=== PATIENT | female | born 1990 | race Caucasian/White ===

== ENCOUNTER 2017-07-26 01:41 | Emergency (ER) | payer OTHER, SELFPAY ==
[2017-07-26] MEDS ORDERED: NA CHLORIDE 0.9% 100 ML IV ONE (01:58)
[2017-07-26] MEDS ORDERED: THIAMINE 200 MG/2 ML INJ ONE (01:58)
[2017-07-26] MEDS ORDERED: NA CHLORIDE 0.9% 1,000 ML ONE (01:59)
[2017-07-26 02:20] LABS: Absolute Lymphocytes (CBC) 1.6 K/uL (0.7-4.9); Absolute Monocytes 0.5 K/uL (0.1-1.3); Absolute Neutrophil 4.2 K/uL (1.8-8.0); Basophils % 0.7 % (0-1.3); Eosinophils % 0.5 % (0-4.4); Hematocrit 38.2 % (36.0-45.0); Lymphocytes % 25.6 % (15.3-44.8); MCH 29.1 pg (27.0-35.0); MPV 9.1 fL (7.6-11.3); Monocytes % 7.5 % (3.3-12.3); RBC Red Blood Cell Count 4.34 M/uL (3.86-4.86)
[2017-07-26 02:22] LABS: Bicarbonate 21 mEq/L (21-31); Glucose Level 91 mg/dL (65-120); Potassium 3.2 mEq/L (3.6-5.0); Protime INR 1.07; Sodium Level 140 mEq/L (135-145)
[2017-07-26 02:28] LABS: ALT/SGPT 17 IU/L (10-60); AST/SGOT 19 IU/L (10-42); Albumin 4.5 g/dL (3.2-5.5); Alkaline Phosphatase 47 IU/L (42-121); BUN Blood Urea Nitrogen 20 mg/dL (6-20); Bilirubin Direct 0.1 mg/dL (0-0.2); Bilirubin Total 0.6 mg/dL (0.3-1.2)
[2017-07-26 03:11] LABS: Alcohol Serum/Plasma 101 mg/dl; Salicylates Level < 4.0 mg/dl (<30)
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
--- NOTE | 2017-07-26 03:19 | EDPHYS ---
Physician Documentation [facility] Name: Humera Payne Age: 27 yrs Sex: Female : 1990 Arrival Date: 07/26/2017 Time: 01:42 Bed 6 Private MD: ED Chi Mohamud HPI: 07/26 01:49 This 27 yrs old Female presents to ER via Ambulatory with complaints of forrest General Weakness, Probable Seizure, Chest Pain. 01:49 The patient presents with a history of multiple seizures, a total of 4. Character of forrest seizure(s): Loss of consciousness: the patient did not lose consciousness, Motor activity: generalized, Incontinence: none, Apnea: the patient did not experience apnea, Circulation: the patient did not experience evidence of pulse disturbance. Seizure onset: just prior to arrival. Context: the seizure(s) was witnessed, by a significant other. Seizure Hx: it is unknown whether or not the patient has a previous seizure history. Associated injury: The patient did not suffer any apparent associated injury. The patient has not experienced similar symptoms in the past. 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 - Social history:: Smoking status: Patient uses tobacco products, unknown amount Patient uses alcohol. - Family history:: not pertinent. ROS: 01:49 Constitutional: Negative for fever, chills, and weight loss, Eyes: Negative for injury, forrest pain, redness, and discharge, ENT: Negative for injury, pain, and discharge, Neck: Negative for injury, pain, and swelling, Cardiovascular: Negative for chest pain, palpitations, and edema, Respiratory: Negative for shortness of breath, cough, wheezing, and pleuritic chest pain, Abdomen/GI: Negative for abdominal pain, nausea, vomiting, diarrhea, and constipation, Back: Negative for injury and pain, : Negative for injury, bleeding, discharge, and swelling, MS/Extremity: Negative for injury and deformity, Skin: Negative for injury, rash, and discoloration, Psych: Negative for depression, anxiety, suicide ideation, homicidal ideation, and hallucinations, Allergy/Immunology: Negative for hives, rash, and allergies, Endocrine: Negative for neck swelling, polydipsia, polyuria, polyphagia, and marked weight changes, Hematologic/Lymphatic: Negative for swollen nodes, abnormal bleeding, and unusual bruising. :49 Neuro: Positive for weakness, pseudoseizure. Exam: :49 Constitutional: This is a well developed, well nourished patient who is awake, alert, forrest and in no acute distress. Head/Face: Normocephalic, atraumatic. Eyes: Pupils equal round and reactive to light, extra-ocular motions intact. Lids and lashes normal. Conjunctiva and sclera are non-icteric and not injected. Cornea within normal limits. Periorbital areas with no swelling, redness, or edema. ENT: Nares patent. No nasal discharge, no septal abnormalities noted. Tympanic membranes are normal and external auditory canals are clear. Oropharynx with no redness, swelling, or masses, exudates, or evidence of obstruction, uvula midline. Mucous membranes moist. Neck: Trachea midline, no thyromegaly or masses palpated, and no cervical lymphadenopathy. Supple, full range of motion without nuchal rigidity, or vertebral point tenderness. No Meningismus. Chest/axilla: Normal chest wall appearance and motion. Nontender with no deformity. No lesions are appreciated. Cardiovascular: Regular rate and rhythm with a normal S1 and S2. No gallops, murmurs, or rubs. Normal PMI, no JVD. No pulse deficits. Respiratory: Lungs have equal breath sounds bilaterally, clear to auscultation and percussion. No rales, rhonchi or wheezes noted. No increased work of breathing, no retractions or nasal flaring. Abdomen/GI: Soft, non-tender, with normal bowel sounds. No distension or tympany. No guarding or rebound. No evidence of tenderness throughout. Back: No spinal tenderness. No costovertebral tenderness. Full range of motion. Female : Normal external genitalia. Skin: Warm, dry with normal turgor. Normal color with no rashes, no lesions, and no evidence of cellulitis. MS/ Extremity: Pulses equal, no cyanosis. Neurovascular intact. Full, normal range of motion. Neuro: Awake and alert, GCS 15, oriented to person, place, time, and situation. Cranial nerves II-XII grossly intact. Motor strength 5/5 in all extremities. Sensory grossly intact. Cerebellar exam normal. Normal gait. Psych: Awake, alert, with orientation to person, place and time. Behavior, mood, and affect are within normal limits. 01:52 Neck: ROM/movement: is normal, no acute changes, Meningeal signs: are not present, forrest Kernig's sign is negative, Brudzinski's sign is negative. Vital Signs: 01:51 BP 115 / 74; Pulse 89; Resp 18; Temp 98.3; Pulse Ox 100% ; Weight 54.43 kg; bp 03:30 BP 121 / 69; Pulse 79; Resp 16; Pulse Ox 100% ; bp [place] Coma Score: 01:51 Eye Response: spontaneous(4). Verbal Response: oriented(5). Motor Response: obeys bp commands(6). Total: 15. MDM: 01:44 Patient medically screened. [facility] 07/26 01:48 Order name: Acetaminophen; Complete Time: 03:15 [facility] 07/26 01:48 Order name: Basic Metabolic Panel; Complete Time: 03:15 [facility] 07/26 01:48 Order name: CBC with Diff; Complete Time: 03:15 [facility] 07/26 01:48 Order name: ETOH Level; Complete Time: 03:15 [facility] 07/26 01:48 Order name: Hepatic Function; Complete Time: 03:15 [facility] 07/26 01:48 Order name: PT-INR; Complete Time: 03:15 [facility] 07/26 01:48 Order name: Ptt, Activated; Complete Time: 03:15 [facility] 07/26 01:48 Order name: Salicylate; Complete Time: 03:15 [facility] 07/26 01:48 Order name: Urine Drug Screen [facility] 07/26 01:48 Order name: CT Head Brain wo Cont [facility] 07/26 02:10 Order name: Urine Dipstick--Ancillary (enter results) [facility] 07/26 01:48 Order name: Urine Test (obtain specimen); Complete Time: 02:12 [facility] 07/26 01:48 Order name: EKG; Complete Time: 01:49 [facility] 07/26 01:48 Order name: EKG - Nurse/Tech; Complete Time: 02:12 [facility] 07/26 01:48 Order name: IV Saline Lock; Complete Time: 02:12 [facility] 07/26 01:48 Order name: Labs collected and sent; Complete Time: 02:12 [facility] 07/26 01:48 Order name: Urine Dipstick-Ancillary (obtain specimen); Complete Time: 02:12 [facility] 07/26 01:48 Order name: Seizure Precautions; Complete Time: 01:57 [facility] Administered Medications: 02:00 Drug: NS 0.9% 1000 ml Route: IV; Rate: 1 bolus; Site: right antecubital; bp 03:41 Follow up: IV Status: Completed infusion bp 02:12 Drug: Thiamine 100 mg Route: IV; Rate: bolus; Site: right antecubital; bp 03:40 Follow up: IV Status: Completed infusion bp 03:30 Drug: Potassium Chloride 20 mEq Route: PO; bp 03:41 Follow up: Response: No adverse reaction bp Disposition: 07/26/17 03:18 Discharged to Home. Impression: Alcohol abuse with intoxication, Anxiety disorder, unspecified, Hypokalemia. - Condition is Stable. - Discharge Instructions: Alcohol and Drug Addiction, Finding Treatment, Alcohol Intoxication, Panic Attacks, Alcohol Abuse and Nutrition, Panic Attacks, [id number], Hypokalemia. - Prescriptions for Benadryl 25 mg Oral Capsule - take 1 capsule by ORAL route every 6 hours As needed; 30 tablet. - Medication Reconciliation Form, Thank You Letter, Antibiotic Education, Prescription Opioid Use, Work release form form. - Follow up: Private Physician; When: 2 - 3 days; Reason: Recheck today's complaints, Continuance of care, Re-evaluation by your physician. - Problem is new. - Symptoms have improved. Signatures: Dispatcher [employer] [facility] Chi Helm MD MD cha Peltier, Brian, RN RN bp Corrections: (The following items were deleted from the chart) 03:42 03:18 07/26/2017 03:18 Discharged to Home. Impression: Alcohol abuse with intoxication; bp Anxiety disorder, unspecified; Hypokalemia. Condition is Stable. Discharge Instructions: Alcohol and Drug Addiction, Finding Treatment, Alcohol Intoxication, Panic Attacks, Alcohol Abuse and Nutrition, Panic Attacks, [id number]. Prescriptions for Benadryl 25 mg Oral Capsule - take 1 capsule by ORAL route every 6 hours As needed; 30 tablet. and Forms are Medication Reconciliation Form, Thank You Letter, Antibiotic Education, Prescription Opioid Use. Follow up: Private Physician; When: 2 - 3 days; Reason: Recheck today's complaints, Continuance of care, Re-evaluation by your physician. Problem is new. Symptoms have improved. forrest
[2017-07-26 03:22] LABS: Barbiturates NEGATIVE; Benzodiazepines NEGATIVE; Cocaine NEGATIVE; METHAMPHETAM NEGATIVE; Opiates NEGATIVE; Phencyclidine NEGATIVE; THC Cannibis NEGATIVE
[2017-07-26 03:23] LABS: Urine Blood TRACE (NEG); Urine Glucose NEGATIVE (NEG); Urine Protein NEGATIVE (NEG); Urine Specific Gravity <1.005 (1.005-1.030)
--- NOTE | 2017-07-26 06:39 | EKG ---
Test Date: 2017-07-26 Test Time: 02:06:55 Hemp Fiber Taker Off: SRIDHAR MEASUREMENT RESULTS: Intervals: Rate: 85 TN: 132 QRSD: 86 QT: 388 QTc: 461 [place]: P: 80 TN: 132 QRS: 86 T: 50 INTERPRETIVE STATEMENTS: Normal sinus rhythm Normal ECG No previous ECG available for comparison Electronically Signed On 07-26-17 06:38:53 CDT by Jelani Young
--- NOTE | 2017-07-26 08:49 | RAD REPORT ---
EXAM DESCRIPTION: CT - Head Brain Wo Cont - 07/26/2017 7:30 am CLINICAL HISTORY: Seizure COMPARISON: None. TECHNIQUE: All CT scans are performed using dose optimization technique as appropriate and may inclu de automated exposure control or mA/KV adjustment according to patient size. FINDINGS: No intracranial hemorrhage, hydrocephalus or extra-axial fluid collection.No areas of brai n edema or evidence of midline shift. The paranasal sinuses and mastoids are clear. The calvarium is intact. IMPRESSION: No acute intracranial abnormality.
== END 2017-07-26 03:42 | disposition home or self-care (01) ==
LOC: ER 01:41
DX: F10.129 Alcohol abuse with intoxication, unspecified (principal); F41.9 Anxiety disorder, unspecified; E87.6 Hypokalemia; Z72.0 Tobacco use
CPT/HCPCS: 36415; 70450; 80048; 80076; 80307; 80320; 80329; 81003; 85025; 85610; 85730; 93005; 96365; 99284; J3411; J7030

== ENCOUNTER 2017-08-15 00:41 | Emergency (ER) | payer SELFPAY ==
[2017-08-15 01:48] LABS: Urine Bacteria <20 /HPF (<20); Urine Culture Reflex Order NOT NEEDED; Urine Mucus HEAVY /HPF (NONE SEEN); Urine RBC <5 /HPF (NONE SEEN)
[2017-08-15] MEDS ORDERED: NA CHLORIDE 0.9% 1,000 ML ONE (01:48)
[2017-08-15 01:55] LABS: Absolute Lymphocytes (CBC) 1.2 K/uL (0.7-4.9); Absolute Monocytes 0.6 K/uL (0.1-1.3); Absolute Neutrophil 6.8 K/uL (1.8-8.0); Basophils % 0.4 % (0-1.3); Eosinophils % 0.2 % (0-4.4); Hematocrit 44.4 % (36.0-45.0); Lymphocytes % 14.4 % (15.3-44.8); MCH 28.9 pg (27.0-35.0); MCV 86.6 fL (80-100); MPV 8.5 fL (7.6-11.3); Monocytes % 6.8 % (3.3-12.3); RBC Red Blood Cell Count 5.13 M/uL (3.86-4.86)
[2017-08-15 01:57] LABS: Urine Blood 2+ (NEG); Urine Glucose NEGATIVE (NEG); Urine Protein 2+ (NEG); Urine Specific Gravity 1.025 (1.005-1.030); Urine pH 6.5 (5.0-7.0)
[2017-08-15 02:11] LABS: Bicarbonate 22 mEq/L (21-31); Glucose Level 99 mg/dL (65-120); Potassium 3.2 mEq/L (3.6-5.0); Sodium Level 137 mEq/L (135-145)
[2017-08-15 02:12] LABS: BUN Blood Urea Nitrogen 15 mg/dL (6-20)
[2017-08-15 02:32] LABS: Alcohol Serum/Plasma < 10 mg/dl
[2017-08-15] MEDS ORDERED: POTASSIUM 25 MEQ EFFERV TAB ONE (03:13)
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
--- NOTE | 2017-08-15 15:41 | EKG ---
Test Date: 2017-08-15 Test Time: 01:47:16 Bridge Ironworker: MEGHNA MEASUREMENT RESULTS: Intervals: Rate: 77 DE: 122 QRSD: 76 QT: 404 QTc: 457 [place]: P: 73 DE: 122 QRS: 84 T: 73 INTERPRETIVE STATEMENTS: Normal sinus rhythm Septal infarct, age undetermined Abnormal ECG Compared to ECG 07/26/2017 02:06:55 Myocardial infarct finding now present Electronically Signed On 08-15-17 15:40:09 CDT by Jelani Young
== END 2017-08-15 05:50 | disposition home or self-care (01) ==
LOC: ER 00:41
DX: S00.03XA Contusion of scalp, initial encounter (principal); F19.10 Other psychoactive substance abuse, uncomplicated; Y04.2XXA Assault by strike against or bumped into by another person, initial encounter; Y93.9 Activity, unspecified; Y92.9 Unspecified place or not applicable; F17.210 Nicotine dependence, cigarettes, uncomplicated
CPT/HCPCS: 36415; 70450; 72125; 80048; 80320; 81003; 81015; 81025; 85025; 93005; 96360; 96361; 99284; J7030

== ENCOUNTER 2021-02-13 20:44 | Emergency (ER) | payer BC, SELFPAY ==
--- OUTSIDE RECORDS SUMMARY | 2021-02-13 20:48 | XMS REPORT | Continuity of Care Document ---
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 GRANULOCYTE # (test 0.01 x10 3/uL 0.00-0.07 N code = IG#) LYMPHOCYTE # (test code = LY#) 1.0 K/mm3 1.2-4.0 L MONOCYTE # (test code = MO#) 0.4 K/mm3 0.0-0.6 N EOSINOPHIL # (test code = EO#) 0.0 K/MM3 0.0-0.7 N BASOPHIL # (test code = BA#) 0.0 K/mm3 0.0-0.2 N URINALYSIS [id number] 13:27:00 Test Item Value Reference Range Interpretation Comments UA COLOR (test code = YELLOW COLU) UA APPEARANCE (test code CLEAR = APPU) UA GLUCOSE DIPSTICK (test NORMAL mg/dl NORMAL code = DGLUU) UA BILIRUBIN DIPSTICK NEGATIVE mg/dL NEGATIVE (test code = BILU) UA KETONE DIPSTICK (test NEGATIVE mg/dl NEGATIVE code = KETU) UA SPECIFIC GRAVITY (test 1.015 1.000-1.030 code = SGU) UA BLOOD DIPSTICK (test 10 Kanu/micL Kanu/micL NEGATIVE A code = LANDON) UA PH DIPSTICK (test code 5.0 5.0-9.0 = GANGA) UA PROTEIN DIPSTICK (test NEGATIVE mg/dl NEGATIVE code = PROU) UA UROBILINIOGEN DIPSTICK NORMAL mg/dl NORMAL (test code = URO) UA NITRITE DIPSTICK (test NEGATIVE NEGATIVE code = ROCIO) UA LEUKOCYTE ESTERASE NEGATIVE Deepa/micL NEGATIVE DIPSTICK (test code = LEUU) UA WBC (test code = WBCU) WBC/HPF NONE UA RBC (test code = RBCU) RBC/HPF 0-3 UA EPITHELIAL CELLS (test EPI/HPF 0-3 code = EPIU) UA BACTERIA (test code = NONE BACU) Specimen comments: Clean Catch- DUP AB/PEL/SC [id number] 13:00:00 FAX: Jamilah Payne MD [phone] [place]: St: REG Name: GILBERT DÍAZ [facility] : 1990 Age/S: 29/F [address] [facility] Unit#: [id number] Loc: [address] Phys: [place] [id number] Acct: [id number] Dis Date: Status: REG ER PHONE #: [phone] Exam Date: 07/01/2019 1250 FAX #: [phone] Reason: RIGHT LQ PAIN. PERV CYST EXAMS: CPT CODE: [id number] DUP AB/PEL/SC COMP 95330 Site ID: [id number] EXAMINATION: - US TRANSVAGINAL NONOB, - US PELVIS COMPLETE, - DUP AB/PEL/SC COMP. HISTORY: Right lower quadrant pain COMPARISON: None. FINDINGS: The uterus is 7.9 x 4 x 5.4 cm. The endometrial stripe is 1.3 cm in thickness. There is no myometrial lesion seen.The right ovary is 3.9 x 2.2 x 3.6 cm. The left ovary is 2.9 x 1.9 x 2.5 cm. Follicles are noted in the ovaries with no suspicious mass. Dominant hemorrhagic follicle in the right ovary is 2 .6 cm in size. No significant free fluid in the pelvis is seen. IMPRESSION: Dominant hemorrhagic follicle is seen in the right ovary. No significant abnormality seen otherwise.. at 1300 Reported and signed by: Corbin Torrez M.D. CC: Jamilah Payne MD Technologist: [id number]; JYOTI DILLON [facility] Date/Time/By: 07/01/2019 (1300) : By: RayTZS PAGE 1 Signed Report FAX: Jamilah Payne MD [phone] [place]: St: REG Name: GILBERT DÍAZ [facility] : 1990 Age/S: 29/F [address] [facility] Unit #: [id number] Loc: [address] Phys: [place] [id number] Acct: [id number] Dis Date: Status: REG ER PHONE #: [phone] Exam Date: 07/01/2019 1250 FAX #: [phone] Reason: RIGHT LQ PAIN. PERV CYST EXAMS: CPT CODE: [id number] DUP AB/PEL/SC COMP 72169 <Continued> Orig Print D/T: S: 07/01/2019 (7483) PAGE 2 Signed Report- US PELVIS [id number] 13:00:00 FAX: Jamilah Payne MD [phone] [place]: St: REG Name: GILBERT DÍAZ [facility] : 1990 Age/S: 29/F [address] [facility] Unit#: [id number] Loc: [address] Phys: [place] [id number] Acct: [id number] Dis Date: Status: REG ER PHONE #: [phone] Exam Date: 07/01/2019 1249 FAX #: [phone] Reason: RIGHT LQ P[AIN EXAMS: CPT CODE: [id number] US PELVIS COMPLETE 68786 Site ID: [id number] EXAMINATION: - US TRANSVAGINAL NONOB, - US PELVIS COMPLETE, - DUP AB/PEL/SC COMP. HISTORY: Right lower quadrant pain COMPARISON: None. FINDINGS: The uterus is 7.9 x 4 x 5.4 cm. The endometrial stripe is 1.3 cm in thickness. There is no myometrial lesion seen.The right ovary is 3.9 x 2.2 x 3.6 cm. The left ovary is 2.9 x 1.9 x 2.5 cm. Follicles are noted in the ovaries with no suspicious mass. Dominant hemorrhagic follicle in the right ovary is 2.6 cm in size. No significant free fluid in the pelvis is seen. IMPRESSION: Dominant hemorrhagic follicle is seen in the right ovary. No significant abnormality seen otherwise.. at 1300 Reported and signed by: Corbin Torrez M.D. CC: Jamilah Payne MD Technologist: JYOTI DILLON [facility] Date/Time/By: 07/01/2019 (4719) : By: Leland PAGE 1 Signed Report FAX: Jamilah Payne MD [phone] [place]: St: REG Name: GILBERT DÍAZ [facility] : 1990 Age/S: 29/F [address] Unit #: [id number] Loc: [address] Phys: [place] [id number] Acct: [id number] Dis Date: Status: REG ER PHONE #: [phone] Exam Date: 07/01/2019 124 FAX #: [phone] Reason: RIGHT LQ P[AIN EXAMS: CPT CODE: [id number] US PELVIS COMPLETE 18846 <Continued> Orig Print D/T: S: 07/01/2019 (4116) PAGE 2 Signed Report- US TRANSVAGINAL NON [id number] 13:00:00 FAX: Jamilah Payne MD [phone] [place]: St: REG [facility] 1990 Age/S: 29/F [address] [employer] Unit#: [id number] Loc: [address] Phys: [place] [address] Acct: [id number] Dis Date: Status: REG ER PHONE #: [phone] Exam Date: 07/01/2019 1249 FAX #: [phone] Reason: RIGHT L EXAMS: CPT CODE: [id number] [place] [address] Site ID: [id number] EXAMINATION: - US TRANSVAGINAL NONOB, - US PELVIS COMPLETE, - DUP AB/PEL/SC COMP. HISTORY: Right lower quadrant pain COMPARISON: None. FINDINGS: The uterus is 7.9 x 4 x 5.4 cm. The endometrial stripe is 1.3 cm in thickness. There is no myometrial lesion seen.The right ovary is 3.9 x 2.2 x 3.6 cm. The left ovary is 2.9 x 1.9 x 2.5 cm. Follicles are noted in the ovaries with no suspicious mass. Dominant hemorrhagic follicle in the right ovary is 2.6 cm in size. No significant free fluid in the pelvis is seen. IMPRESSION: Dominant hemorrhagic follicle is seen in the right ovary. No significant abnormality seen otherwise.. at 1300 Reported and signed by: Corbin Torrez M.D. CC: Jamilah Payne MD Technologist: [id number] Rm 2; JYOTI DILLON Trnsc[facility] Date/Time/By: 07/01/2019 (1300) : By: Leland PAGE 1 Signed Report FAX: Jamilah Payne MD [phone] [place]: St: REG Name: GILBERT DÍAZ [facility] : 1990 Age/S: 29/F [address] [facility] Unit #: [id number] Loc: [address] [place] [address] Phys: [place] [id number] Acct: [id number] Dis Date: Status: REG ER PHONE #: [phone] Exam Date: 07/01/20199 FAX #: [phone] Reason: RIGHT L EXAMS: CPT CODE: [id number] [place] [address] <Continued> Orig Print D/T: S: 07/01/2019 (3065) PAGE 2 Signed ReportDRUGS OF ABUSE SCREEN [id number] 12:34:00 Test Item Value Reference Range Interpretation Comments URN COCAINE (test code NEGATIVE NEGATIVE Cocai ne cut-off = COCAURN) concentration: 300 ng/mL URN CANNABINOIDS (test NEGATIVE NEGATIVE Canna binoids cut-off code = CANNABURN) concentrat ion: 50 ng/mL URN AMPHETAMINE (test NEGATIVE NEGATIVE Amphet amine cut-off code = AMPHETURN) concentrat ion: 1000 ng/mL URN BARBITURATE (test NEGATIVE NEGATIVE Barbit urate cut-off code = BARBITURN) concentrat ion: 200 ng/mL URN BENZODIAZEPINE NEGATIVE NEGATIVE Benzodiaz epine cut-off (test code = BENZOURN) caity ntration: 200 ng/mL URN OPIATES (test code NEGATIVE NEGATIVE Opiat es cut-off = OPIATURN) concentration: 200 ng/mL URN PHENCYCLIDINE (PCP) NEGATIVE NEGATIVE Phen cyclidine(PCP) (test code = PHENCURN) cut-o ff concentration: 25 ng/ml URN METHADONE (test NEGATIVE NEGATIVE Methadon e cut-off code = METHAURN) concentrati on: 300 ng/mL HCG SERUM [id number] 11:50:00 Test Item Value Reference Range Interpretation Comments HCG SERUM QUAL (test code = HCGQL) NEGATIVE NEGATIVE"
[2021-02-13 22:18] LABS: Urine Blood Negative (Negative); Urine Glucose Negative (Negative); Urine Protein Negative (Negative)
--- NOTE | 2021-02-14 00:43 | ER ---
Nurse's Notes [facility] Name: Humera Payne Age: 30 yrs Sex: Female : 1990 Arrival Date: 02/13/2021 Time: 20:49 Bed Waiting Private MD: Diagnosis: Dysuria Presentation: 02/13 23:12 Chief complaint: Patient states: concerned about having a STD because I have had mw itching in vaginal area x 2 days. Denies pain, discharge, or redness. 23:12 Method Of Arrival: Ambulatory 23:12 Acuity: DINAH 4 23:30 Coronavirus screen: At this time, the client does not indicate any symptoms associated lp1 with coronavirus-19. Ebola Screen: No symptoms or risks identified at this time. Initial Sepsis Screen: Does the patient meet any 2 criteria? No. Patient's initial sepsis screen is negative. Does the patient have a suspected source of infection? No. Patient's initial sepsis screen is negative. Risk Assessment: Do you want to hurt yourself or someone else? Patient reports no desire to harm self or others. 23:30 Onset of symptoms was February 14, 2021. lp1 Screenin/22 01:00 Abuse screen: Denies threats or abuse. Denies injuries from another. Nutritional lp1 screening: No deficits noted. Tuberculosis screening: No symptoms or risk factors identified. Fall Risk None identified. Assessment: 01:00 General: Appears in no apparent distress. Behavior is calm. Neuro: No deficits noted. lp1 Cardiovascular: Patient's skin is warm and dry. Respiratory: No deficits noted. GI: No signs and/or symptoms were reported involving the gastrointestinal system. : Reports vaginal itching. EENT: No signs and/or symptoms were reported regarding the EENT system. Derm: Skin is pink, warm \T\ dry. Musculoskeletal: No deficits noted. Vital Signs: 02/13 23:12 BP 127 / 88; Pulse 85; Resp 16; Temp 97.6; Pulse Ox 100% ; Weight 58.06 kg; Height 5 mw ft. 9 in. (175.26 cm); Pain 0/10; 23:12 Body Mass Index 18.90 (58.06 kg, 175.26 cm) ED Course: 20:49 Patient arrived in ED. 21:06 Bud Fernandes PA is PHCP. [facility] 21:06 Anthony Marsh MD is Attending Physician. [facility] 22:19 Urine collected: clean catch specimen, clear, urine micro and culture sent to lab. [facility] 23:13 Triage completed. 02/14 01:00 No provider procedures requiring assistance completed. Patient did not have IV access lp1 during this emergency room visit. 01:00 Arm band placed on. lp1 01:00 Patient has correct armband on for positive identification. lp1 Administered Medications: No medications were administered Outcome: 00:42 Discharge ordered by MD. [facility] 01:05 Discharged to home ambulatory. [facility] 01:05 Condition: good 01:05 Discharge instructions given to patient, Instructed on discharge instructions, follow up and referral plans. medication usage, Demonstrated understanding of instructions, follow-up care, medications, Prescriptions given X 2. 01:06 Patient left the ED. 1 Signatures: Maribell Hi RN RN Bud Fernandes PA PA [facility] Ronel Gray RN RN 1 Marielle Eaton [facility] Holli Jerome Corrections: (The following items were deleted from the chart) 02/13 23:14 23:14 PMHx: Substance Abuse; [facility] 02/14 04:01 03:59 General: Appears in no apparent distress. Behavior is calm, lp1 lp1 04:01 03:59 Neuro: No deficits noted. 1 lp1 04:01 03:59 Cardiovascular: Patient's skin is warm and dry. 1 1 04:01 03:59 Respiratory: No deficits noted. 1 1 04:01 03:59 GI: No signs and/or symptoms were reported involving the gastrointestinal system. 1 lp1 04:01 03:59 : No signs and/or symptoms were reported regarding the genitourinary system. lp1lp1 04:01 03:59 EENT: No signs and/or symptoms were reported regarding the EENT system. 1 lp1 04:01 03:59 Derm: Skin is pink, warm \T\ dry. 1 lp1 04:01 03:59 Musculoskeletal: No deficits noted. 1 lp1 04:02 01:00 : No signs and/or symptoms were reported regarding the genitourinary system. lp1lp1
--- NOTE | 2021-02-14 00:43 | EDPHYS ---
Physician Documentation [facility] Name: Humera Payne Age: 30 yrs Sex: Female : 1990 Arrival Date: 02/13/2021 Time: 20:49 Bed Waiting Private MD: ED Physician Anthony Marsh HPI: 02/14 00:40 This 30 yrs old Female presents to ER via Ambulatory with complaints of Possible STD. jmm 00:40 The patient presents with urinary symptoms, dysuria. Onset: The symptoms/episode jmm began/occurred gradually. Modifying factors: The symptoms are alleviated by nothing, the symptoms are aggravated by nothing. Associated signs and symptoms: Pertinent positives: dysuria, Pertinent negatives: fever. Patient is concerned she may have an STI. ROS: 00:40 Constitutional: Negative for fever, chills, and weight loss, Cardiovascular: Negative jmm for chest pain, palpitations, and edema, Respiratory: Negative for shortness of breath, cough, wheezing, and pleuritic chest pain. 00:40 : Positive for urinary symptoms. 00:40 All other systems are negative. Exam: 00:40 Constitutional: This is a well developed, well nourished patient who is awake, alert, jmm and in no acute distress. Head/Face: atraumatic. Eyes: EOMI, no conjunctival erythema appreciated ENT: Moist Mucus Membranes Neck: Trachea midline, Supple Chest/axilla: Normal chest wall appearance and motion. Cardiovascular: Regular rate and rhythm. No edema appreciated Respiratory: Normal respirations, no respiratory distress appreciated Abdomen/GI: Non distended, soft Back: Normal ROM Skin: General appearance color normal MS/ Extremity: Moves all extremities, no obvious deformities appreciated, no edema noted to the lower extremities Neuro: Awake and alert, normal gait Psych: Behavior is normal, Mood is normal, Patient is cooperative and pleasant Vital Signs: 02/13 23:12 BP 127 / 88; Pulse 85; Resp 16; Temp 97.6; Pulse Ox 100% ; Weight 58.06 kg; Height 5 mw ft. 9 in. (175.26 cm); Pain 0/10; 23:12 Body Mass Index 18.90 (58.06 kg, 175.26 cm) mw MDM: 02/14 00:03 Patient medically screened. jmm 00:41 Data reviewed: vital signs, nurses notes. Counseling: I had a detailed discussion with [facility] the patient and/or guardian regarding: the historical points, exam findings, and any diagnostic results supporting the discharge/admit diagnosis, lab results, the need for outpatient follow up, to return to the emergency department if symptoms worsen or persist or if there are any questions or concerns that arise at home. 02/13 22:17 Order name: Urine Dipstick-Ancillary; Complete Time: 22:58 EDMS 02/13 22:18 Order name: GC (Ozzy/Chl) Probe URINE EDMS 02/13 22:17 Order name: Urine Dipstick-Ancillary (obtain specimen); Complete Time: 22:18 lp1 02/13 22:18 Order name: Urine Test (obtain specimen); Complete Time: 22:18 lp1 02/13 22:18 Order name: Urine --Ancillary (enter results); Complete Time: 22:58 [facility] Administered Medications: No medications were administered Disposition: 06:07 Co-signature as Attending Physician, Anthony Marsh MD. [email or web address] Disposition Summary: 02/14/21 00:42 Discharge Ordered Location: Home [facility] Condition: Stable [facility] Diagnosis - Dysuria [facility] Followup: [facility] - With: Private Physician - When: 2 - 3 days - Reason: Recheck today's complaints, Continuance of care, Re-evaluation by your physician Discharge Instructions: - Discharge Summary Sheet [facility] - Dysuria [facility] Forms: - Medication Reconciliation Form [facility] - Thank You Letter [facility] - Antibiotic Education [facility] - Prescription Opioid Use [facility] Prescriptions: - cefdinir 300 mg Oral capsule - take 1 capsule by ORAL route every 12 hours for 10 days; 20 capsule; Refills: [facility] 0, Product Selection Permitted - Zithromax 1 gram Oral Packet - take 1 packet by ORAL route one time as a single dose; 1 packet; Refills: 0, [facility] Product Selection Permitted Signatures: Dispatcher MedHo Maribell Christie RN RN Bud Cantu PA PA jmm Pena, Laura RN RN 1 Anthony Marsh MD MD [email or web address] Corrections: (The following items were deleted from the chart) 02/13 23:14 23:14 PMHx: Substance Abuse; a[facility]se [facility]ullen
[2021-02-14 01:12] VITALS: BP 127/88; TEMP 97.6; O2SAT 100
[2021-02-18 04:15] LABS: C.trachomatis RNA,TMA Not Detected (Not Detected)
== END 2021-02-14 01:06 | disposition home or self-care (01) ==
LOC: ER 20:44
DX: R30.0 Dysuria (principal)
CPT/HCPCS: 81003; 81025; 87490; 87590; 99283

== ENCOUNTER 2021-06-14 09:39 | Emergency (ER) | payer BC ==
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
[2021-06-14 10:27] LABS: Urine Blood 2+ (Negative); Urine Glucose Negative (Negative); Urine Protein Negative (Negative); Urine pH 5.5 (5.0-7.0)
[2021-06-14 10:34] LABS: Absolute Lymphocytes (CBC) 0.9 K/uL (0.7-4.9); Hematocrit 39.7 % (36.0-45.0); Lymphocytes % 26.3 % (15.3-44.8); MPV 8.7 fL (7.6-11.3); RBC Red Blood Cell Count 4.48 M/uL (3.86-4.86)
[2021-06-14 10:46] LABS: Albumin 4.1 g/dL (3.4-5.0); Bilirubin Total 0.4 mg/dL (0.2-1.0); Potassium 3.8 mmol/L (3.5-5.1); Protein, Total 7.5 g/dL (6.4-8.2)
--- NOTE | 2021-06-14 11:24 | RAD REPORT ---
EXAM DESCRIPTION: US - Transvaginal Study Probe - 06/14/2021 11:15 am CLINICAL HISTORY: right pelvic pain COMPARISON: TRANSVAGINAL STUDY PROBE dated 03/09/2014 TECHNIQUE: Endovaginal sonography was performed. FINDINGS: Endometrial stripe is 3 mm with no endometrial mass, polyp or focal abnormality seen. No s ignificant myometrial finding seen. There is a small nabothian cyst near the external os. No abnormal free fluid in the cul de sac. The trace amount of free fluid seen as well within physiolo gic limits. Both ovaries are well visualized with normal blood flow identifiable within the ovarian stroma. Small follicles are seen in each ovary common normal for age. No dominant solid or cystic ovarian or adnex al finding. IMPRESSION: Unremarkable endovaginal pelvic ultrasound as detailed.
--- NOTE | 2021-06-14 11:42 | RAD REPORT ---
EXAM DESCRIPTION: CT - Abdomen Pelvis W Contrast - 06/14/2021 11:24 am CLINICAL HISTORY: ABD PAINlower abdomen with history of tubal ligation COMPARISON: No comparisons TECHNIQUE: Biphasic, helical CT imaging of the abdomen and pelvis was performed following 100 ml non -ionic IV contrast. No oral contrast administered. All CT scans are performed using dose optimization technique as appropriate and may include automated exposure control or mA/KV adjustment according to patient size. FINDINGS: No suspicious findings in the lung bases. The liver, spleen, and pancreas show no suspicious findings. Gallbladder and biliary tree are also wi thout suspicious finding. Symmetric renal function is seen with no hydronephrosis or suspicious renal mass. No pyelonephritis o r acute parenchymal process. Mostly contracted urinary bladder shows no suspicious finding. No adrena l abnormalities. Uterus and ovaries show no suspicious findings. No fallopian tube dilatation seen. No dilated bowel loops or bowel wall thickening. Appendix is not clearly defined. Cecum is low-lying on the anterior pelvic floor. No direct or indirect evidence of appendicitis or other active bowel pr ocess. No free air, free fluid or inflammatory stranding. No hernia, mass or bulky lymphadenopathy. No suspicious bony findings. IMPRESSION: Contrast enhanced CT abdomen and pelvis showing no significant or suspicious finding.
[2021-06-14] MEDS ORDERED: KETOROLAC 30 MG/ML INJ ONE (11:47)
[2021-06-14] MEDS ORDERED: ONDANSETRON 4 MG/2 ML VIAL ONE (11:47)
--- NOTE | 2021-06-14 12:40 | ER ---
Nurse's Notes [facility] Name: Humera Payne Age: 31 yrs Sex: Female : 1990 Arrival Date: 06/14/2021 Time: 09:42 Bed 24 Private MD: Diagnosis: Lower abdominal pain, unspecified Presentation: 06/14 09:49 Chief complaint: Patient states: lower abdominal pain possible hernia. Coronavirus jc screen: Vaccine status: Patient reports receiving the 2nd dose of the covid vaccine. Ebola Screen: Patient denies travel to an Ebola-affected area in the 21 days before illness onset. Initial Sepsis Screen: Does the patient meet any 2 criteria? No. Patient's initial sepsis screen is negative. Does the patient have a suspected source of infection? No. Patient's initial sepsis screen is negative. Risk Assessment: Do you want to hurt yourself or someone else? Patient reports no desire to harm self or others. Onset of symptoms was June 13, 2021. 09:49 Method Of Arrival: Ambulatory jc 09:49 Acuity: DINAH 3 jc Triage Assessment: 09:52 General: Appears uncomfortable, Behavior is calm, cooperative. Pain: Complains of pain jc in abdomen. GI: Reports diarrhea, nausea, Pain is 10 out of 10 on a pain scale. 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 - Social history:: Smoking status: Reported history of juuling and/or vaping. Screenin:13 Abuse screen: Denies threats or abuse. Denies injuries from another. Nutritional ab2 screening: No deficits noted. Tuberculosis screening: No symptoms or risk factors identified. Fall Risk None identified. Assessment: 10:09 General: Appears in no apparent distress. uncomfortable, Behavior is calm, cooperative, ab2 appropriate for age. Pain: Complains of pain in right lower quadrant and left lower quadrant Pain currently is 8 out of 10 on a pain scale. 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 Gait is steady, Speech is normal. Cardiovascular: No deficits noted. Denies chest pain, shortness of breath, Heart tones S1 S2 present Patient's skin is warm and dry. Respiratory: No deficits noted. Airway is patent Respiratory effort is even, unlabored, Respiratory pattern is regular, symmetrical, Breath sounds are clear bilaterally. GI: Abdomen is round Bowel sounds present X 4 quads. Abdomen is tender to palpation X 4 quads. Reports lower abdominal pain. : No deficits noted. No signs and/or symptoms were reported regarding the genitourinary system. EENT: No deficits noted. No signs and/or symptoms were reported regarding the EENT system. Derm: No deficits noted. Skin is intact, is healthy with good turgor, Skin is pink, warm \T\ dry. Musculoskeletal: No deficits noted. No signs and/or symptoms reported regarding the musculoskeletal system. 11:52 Reassessment: Patient appears in no apparent distress at this time. Pt given pain ab2 medication as she states she is in pain. Pt ambulated to bathroom with no assistance. Friend at bedside. 12:58 Reassessment: Called [facility] and they stated that cheo is out front waiting on ab2 patient to take her back to the facility. Vital Signs: 09:49 BP 121 / 80; Pulse 88; Resp 20; Temp 98.41; Pulse Ox 97% ; Weight 59.42 kg; Height 5 jc ft. 9 in. (175.26 cm); 10:14 BP 103 / 78; Pulse 82; Resp 16; Pulse Ox 100% on R/A; ab2 11:52 BP 103 / 74; Pulse 79; Resp 16; Pulse Ox 98% on R/A; ab2 12:25 BP 98 / 77; Pulse 81; Resp 17; Pulse Ox 98% on R/A; ab2 09:49 Body Mass Index 19.35 (59.42 kg, 175.26 cm) jc ED Course: 09:42 Patient arrived in ED. calixto 09:44 Bud Fernandes PA is PHCP. higinio 09:44 Murtaza Lindsay MD is Attending Physician. jmm 09:52 Triage completed. jc 10:00 Dominick Doll is Primary Nurse. ab2 10:13 Arm band placed on right wrist. ab2 10:13 Patient has correct armband on for positive identification. Bed in low position. Call ab2 light in reach. Side rails up X2. 10:13 No provider procedures requiring assistance completed. Inserted saline lock: 20 gauge ab2 in right antecubital area, using aseptic technique. Blood collected. 10:20 CBC with Diff Sent. ab2 10:20 CMP Sent. ab2 10:20 Lipase Sent. ab2 10:20 Lipase Sent. ab2 10:20 Comprehensive Metabolic Panel Sent. ab2 10:20 CBC with Automated Diff Sent. ab2 10:28 Urine collected: clean catch specimen, cloudy. 5 11:15 Transvaginal Study Probe In Process Unspecified. EDMS 11:24 CT Abd/Pelvis - IV Contrast Only In Process Unspecified. EDMS 12:39 Arlet Jones MD is Referral Physician. [facility] 12:39 Nevin Ogden MD is Referral Physician. [facility] 13:00 IV discontinued, intact, bleeding controlled, No redness/swelling at site. Pressure ab2 dressing applied. Administered Medications: 11:42 CANCELLED (different medication usedd): morphine 4 mg IVP once; RASS on ADMIN: Combtv4, jmm Very Agttd3, Agttd2, Rstlss1, AlertClm0, Drwsy-1, Lt Sdtn-2, Mod Sdtn-3, Dp Sdtn-4, UnArsble-5 11:51 Drug: Zofran (Ondansetron) 4 mg Route: IVP; Site: right antecubital; ab2 12:34 Follow up: Response: No adverse reaction ab2 11:51 Drug: Ketorolac 30 mg Route: IVP; Site: right antecubital; ab2 12:33 Follow up: Response: No adverse reaction ab2 Outcome: 12:40 Discharge ordered by . [facility] 12:59 Discharged to Rehab Facility ab2 12:59 Condition: good 12:59 Discharge instructions given to patient, Instructed on discharge instructions, follow up and referral plans. medication usage, Demonstrated understanding of instructions, follow-up care, medications, Prescriptions given X 2. 13:00 Patient left the ED. ab2 Signatures: Dispatcher [employer] EDMS Bud Fernandes PA PA jmm Martinez, [facility] Cassidy Bills RN RN Dominick Culver ab2 Rudy, Natali kz
--- NOTE | 2021-06-14 12:41 | EDPHYS ---
Physician Documentation [facility] Name: Humera Payne Age: 31 yrs Sex: Female : 1990 Arrival Date: 06/14/2021 Time: 09:42 Bed 24 Private MD: ED Physician Murtaza Lindsay HPI: 06/14 10:15 This 31 yrs old Female presents to ER via Ambulatory with complaints of Abdominal Pain. jmm 10:15 The patient presents with abdominal pain in the lower abdomen, right lower quadrant. jmm Onset: The symptoms/episode began/occurred 5 year(s) ago. The symptoms do not radiate. Associated signs and symptoms: Pertinent negatives: diarrhea, vomiting. The symptoms are described as achy. This is a 31-year-old female with no known chronic bowel condition presents emerged part with complaints of right lower quadrant abdominal pain. Patient states pain is been intermittent since 2016. Pain most recently returned today. Denies fever or chills. Denies vomiting or diarrhea. Denies painful urination. 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 - Social history:: Smoking status: Reported history of juuling and/or vaping. ROS: 10:15 Constitutional: Negative for fever, chills, and weight loss, Cardiovascular: Negative jmm for chest pain, palpitations, and edema, Respiratory: Negative for shortness of breath, cough, wheezing, and pleuritic chest pain. 10:15 Abdomen/GI: Positive for abdominal pain. 10:15 All other systems are negative. Exam: 10:15 Constitutional: This is a well developed, well nourished patient who is awake, alert, jmm and in no acute distress. Head/Face: atraumatic. Eyes: EOMI, no conjunctival erythema appreciated ENT: Moist Mucus Membranes Neck: Trachea midline, Supple Chest/axilla: Normal chest wall appearance and motion. Cardiovascular: Regular rate and rhythm. No edema appreciated Respiratory: Normal respirations, no respiratory distress appreciated 10:15 Back: Normal ROM Skin: General appearance color normal MS/ Extremity: Moves all extremities, no obvious deformities appreciated, no edema noted to the lower extremities Neuro: Awake and alert Psych: Behavior is normal, Mood is normal, Patient is cooperative and pleasant 10:15 Abdomen/GI: Inspection: abdomen appears normal, Bowel sounds: normal, Palpation: soft, mild abdominal tenderness, in the right lower quadrant. Vital Signs: 09:49 BP 121 / 80; Pulse 88; Resp 20; Temp 98.41; Pulse Ox 97% ; Weight 59.42 kg; Height 5 jc ft. 9 in. (175.26 cm); 10:14 BP 103 / 78; Pulse 82; Resp 16; Pulse Ox 100% on R/A; ab2 11:52 BP 103 / 74; Pulse 79; Resp 16; Pulse Ox 98% on R/A; ab2 12:25 BP 98 / 77; Pulse 81; Resp 17; Pulse Ox 98% on R/A; ab2 09:49 Body Mass Index 19.35 (59.42 kg, 175.26 cm) jc MDM: 10:31 Patient medically screened. [facility] 12:39 Data reviewed: vital signs, nurses notes. Counseling: I had a detailed discussion with higinio the patient and/or guardian regarding: the historical points, exam findings, and any diagnostic results supporting the discharge/admit diagnosis, lab results, radiology results, the need for outpatient follow up, to return to the emergency department if symptoms worsen or persist or if there are any questions or concerns that arise at home. 06/14 10:15 Order name: CBC with Diff ab2 06/14 10:15 Order name: CMP ab2 06/14 10:15 Order name: Lipase ab2 06/14 10:15 Order name: CBC with Automated Diff; Complete Time: 11:32 EDNJ 06/14 10:15 Order name: Comprehensive Metabolic Panel; Complete Time: 11: [facility] 06/14 10:15 Order name: Lipase; Complete Time: 11:32 [facility] 06/14 10:27 Order name: Urine Dipstick-Ancillary; Complete Time: 11:32 EDNJ 06/14 10:32 Order name: Urine --Ancillary (enter results); Complete Time: 11:32 bd 06/14 10:34 Order name: CT Abd/Pelvis - IV Contrast Only; Complete Time: 11:43 [facility] 06/14 10:39 Order name: Transvaginal Study Probe; Complete Time: 11:32 EDMS 06/14 10:15 Order name: IV Saline Lock; Complete Time: 10:20 ab2 06/14 10:15 Order name: Labs collected and sent; Complete Time: 10:20 ab2 06/14 10:15 Order name: Urine Dipstick-Ancillary (obtain specimen); Complete Time: 10:22 ab2 06/14 10:15 Order name: Urine Test (obtain specimen); Complete Time: 10:22 ab2 Administered Medications: 11:42 CANCELLED (different medication usedd): morphine 4 mg IVP once; RASS on ADMIN: Combtv4, jmm Very Agttd3, Agttd2, Rstlss1, AlertClm0, Drwsy-1, Lt Sdtn-2, Mod Sdtn-3, Dp Sdtn-4, UnArsble-5 11:51 Drug: Zofran (Ondansetron) 4 mg Route: IVP; Site: right antecubital; ab2 12:34 Follow up: Response: No adverse reaction ab2 11:51 Drug: Ketorolac 30 mg Route: IVP; Site: right antecubital; ab2 12:33 Follow up: Response: No adverse reaction ab2 Disposition: 18:35 Co-signature as Attending Physician, Murtaza Lindsay MD. rn Disposition Summary: 06/14/21 12:40 Discharge Ordered Location: Home [facility] Condition: Stable [facility] Diagnosis - Lower abdominal pain, unspecified [facility] Followup: [facility] - With: Alret Jones MD - When: 2 - 3 days - Reason: Recheck today's complaints, Continuance of care, Re-evaluation by your physician Followup: [facility] - With: Nevin Ogden MD - When: 2 - 3 days - Reason: Recheck today's complaints, Continuance of care, Re-evaluation by your physician Discharge Instructions: - Discharge Summary Sheet [facility] - Abdominal Pain, Adult [facility] Forms: - Medication Reconciliation Form [facility] - Thank You Letter [facility] - Antibiotic Education [facility] - Prescription Opioid Use [facility] Prescriptions: - orphenadrine citrate 100 mg Oral Tablet Sustained Release - take 1 tablet by ORAL route 2 times per day As needed; 20 tablet; Refills: 0, [facility] Product Selection Permitted - dicyclomine 20 mg Oral Tablet - take 1 tablet by ORAL route 4 times per day; 30 tablet; Refills: 0, Product [facility] Selection Permitted Signatures: Dispatcher [employer] EDMS Bud Fernandes PA PA jmm Nieto, Roman, MD MD rn Leigh-Cassidy Rivera RN RN ha Bleininger, Alexis ab2 Corrections: (The following items were deleted from the chart) 10:39 10:34 Pelvis Complete+US.RAD.BRZ ordered. EDMS EDMS 11:42 11:42 morphine 4 mg IVP once; RASS on ADMIN: Combtv4, Very Agttd3, Agttd2, Rstlss1, jmm AlertClm0, Drwsy-1, Lt Sdtn-2, Mod Sdtn-3, Dp Sdtn-4, UnArsble-5 ordered. [facility]
[2021-06-14 13:30] VITALS: O2SAT 98
[2021-06-14 13:31] VITALS: BP 98/77
== END 2021-06-14 13:00 | disposition home or self-care (01) ==
LOC: ER 09:39
DX: R10.30 Lower abdominal pain, unspecified (principal)
CPT/HCPCS: 85025; 36415; 81025; 81003; 83690; 80053; 74177; 76830; Q9967; J2405; 96374; 96375; 99284